=== PATIENT | male | born 1980 | race Native Hawaiian/Other Pacific Islander ===

== ENCOUNTER 2018-08-15 12:11 | Outpatient (CLI) | payer BC | END 2018-08-15 22:40 | disposition home or self-care (01) | LOC: LABW 12:11 | DX: Z30.09 Encounter for other general counseling and advice on contraception (principal) | CPT/HCPCS: 89320 ==

== ENCOUNTER 2021-11-14 08:24 | Outpatient (CLI) | payer BC | END 2021-11-14 21:09 | disposition home or self-care (01) | LOC: US 08:24 | PROVIDERS: ATTEND Internal Medicine | DX: R94.5 Abnormal results of liver function studies (principal) ==